=== PATIENT | female | born 1990 | race Caucasian/White ===

== ENCOUNTER 2017-12-11 20:00 | Emergency (ER) | payer MEDICAID ==
[~2017-12-11] VITALS: Ht 162.6 cm; Wt 56.4 kg
[2017-12-11] MEDS ORDERED: PREN-155 PO (20:04)
[2017-12-11] MEDS ORDERED: ONDANSETRON HCL 4 MG TABLET PO ONE (21:15)
[2017-12-11] MEDS ORDERED: ACETAMINOPHEN 500 MG TABLET PO ONE (21:15)
[2017-12-11 21:42] VITALS: BP 95/61
== END 2017-12-11 21:44 | disposition home or self-care (01) ==
LOC: EMS 20:02
DX: O26.893 Other specified pregnancy related conditions, third trimester (principal); G44.209 Tension-type headache, unspecified, not intractable; Z3A.34 34 weeks gestation of pregnancy
CPT/HCPCS: 99283; Q0162